=== PATIENT | female | born 1955 | race Caucasian/White ===

== ENCOUNTER → 2022-07-14 | Outpatient (CLI) | payer OTHER ==
[2022-07-14 22:19] LABS: PROCALCITONIN <0.05 ng/mL (0.00-0.09)
[2022-07-15 23:12] LABS: TB GOLD INTERPRETATION Negative (Negative)
[2022-07-18 14:28] LABS: HISTOPLASMA MYCELIAL Negative (Negative); HISTOPLASMA YEAST 1:16 (Negative)
[2022-07-19 09:22] LABS: COCCIDIOIDES AB IGG Negative (Negative); COCCIDIOIDES AB IGM Negative (Negative); COCCIDIOIDES CF Negative (Negative)
== END ==
LOC: COL.LAB 10:35
PROVIDERS: Internal Medicine Pulmonary Disease
DX: R91.1 Solitary pulmonary nodule (principal)